=== PATIENT | female | born 1945 | race Caucasian/White ===

== ENCOUNTER 2025-03-26 16:26 | Emergency (ER) | payer OTHER, SELFPAY ==
[2025-03-26 16:28] VITALS: BP 165/85
[2025-03-26 17:07] LABS: ALT (SGPT) 32 U/L (0-35); AST (SGOT) 49 U/L (14-36); Albumin 4.1 g/dl (3.5-5.0); Alkaline Phosphatase 85 U/L (38-126); Blood Urea Nitrogen 23 mg/dl (7-17); Calcium 10.8 mg/dl (8.4-10.2); Carbon Dioxide 22 mmol/L (22-30); Chloride 104 mmol/L (98-107); Glucose 148 mg/dl (70-99); Potassium 4.2 mmol/L (3.5-5.1); Sodium 135 mmol/L (135-145); Total Protein 7.0 g/dl (6.3-8.2); eGFR 45.48
[2025-03-26 17:23] LABS: Hematocrit 44.5 % (37.0-47.0); Hemoglobin 15.0 g/dL (12.0-16.0); Mean Corp Hgb Conc. 33.7 g/dL (33.0-37.0); Mean Corpuscular Volume 91.8 fL (81.0-99.0); Nucleated Red Blood Cells % 0 %; Platelet Count 155 10^3/uL (130-400); Red Cell Dist. Width 13.2 % (11.5-14.5)
[2025-03-26 19:23] VITALS: BP 181/74
[2025-03-26 20:00] VITALS: BP 123/74
[2025-03-26] MEDS: NSS 1000 IV (20:16)
--- NOTE | 2025-03-26 20:17 | ED.GENMED ---
History of Present Illness
General
Chief Complaint: Abdominal Symptoms
Time Seen by Provider: 03/26/25 19:54
History of Present Illness
History of Present Illness:
79-year-old female presents to the emergency department for evaluation of dizziness and generalized weakness beginning. She states she has felt unwell for the past 5 days with chills and malaise, yesterday felt nauseated and threw up her breakfast.
Since that time has had positional dizziness. Denies any headaches, vision changes, chest pain, or shortness of breath. No coughing or abdominal pain at this point.
Past History
Past History
ED Past Medical History: Other (OA)
ED Past Surgical History: Cholecystectomy, and Orthopedic
Social History
Tobacco: Non-smoker
Personal:
Living: alone
Review of Systems
Review of Systems
Allergies reviewed?: Yes
All Other Systems: ROS reviewed and negative except as documented in HPI and ROS
Phy Exam
Physical Exam
Physical Exam:
GEN: Well appearing, NAD, WDWN
HEENT: Oral mucosa moist, no scleral icterus, no nasal congestion
Cardiac: Regular rate and rhythm, no murmur
Lung: No respiratory distress, no tachypnea, lungs clear to auscultation bilaterally
MSK: No gross deformity or injuries
Skin: Good color, no pallor or jaundice, no rashes
Neuro: AO x3; CN II-XII grossly intact. BUE strength 5/5 in all tsang, sensation intact and symmetric. BLE strength 5/5 in all tsang, sensation intact and symmetric
Psych: Calm, cooperative
Course
Orders/Labs/Results
Orders:
Orders
03/26/25 16:32
Electrocardiogram (*1) Urgent
Reason for Study: Chest Pain
EKG- Treatment ONCE
03/26/25 16:43
Complete Blood Count/With Diff Urgent
Comprehensive Metabolic Panel Urgent
03/26/25 20:08
0.9% Sodium Chloride 1000 ml [Nss] 1,000 ml IV BOLUS
03/26/25 22:24
Urinalysis Reflex To Culture Urgent
Date Specimen was Collected: 03/26/25
Time Specimen was Collected: 20:30
Urine Microscopic Reflex Cult Urgent
Urine Culture Urgent
TODD Source: U
Specimen Description:
Date Specimen was Collected: 03/26/25
Time Specimen was Collected: 20:30
03/26/25 23:09
Fosfomycin [Monurol] 3 gm PO ONCE ONE
Abnormal Lab Results
03/26/25 03/26/25
16:43 22:24
WBC 4.6 L 10^3/uL
(4.8-10.8)
Monocytes % 10.4 H %
(1.7-9.3)
BUN 23 H mg/dl
(7-17)
Creatinine 1.2 H mg/dL
(0.6-1.0)
Glucose 148 H mg/dl
(70-99)
Calcium 10.8 H mg/dl
(8.4-10.2)
AST 49 H U/L
(14-36)
Leukocyte Esterase Rfl 2+ A
(Negative)
Urine WBC (Reflex) 16-20 A /HPF
(0-5)
Urine Bacteria (Reflex) Moderate A
(Negative)
Urine Albumin (Reflex) 1+ A
(Neg - Trace)
03/26/25 16:43
03/26/25 16:43
Vital Signs
Initial and Last Documented VS:
Initial Vital Signs
Temp Pulse Resp BP Pulse Ox
98.3 F 96 16 165/85 95
03/26/25 16:28 03/26/25 16:28 03/26/25 16:28 03/26/25 16:28 03/26/25 16:28
Last Documented Vital Signs
Temp Pulse Resp BP Pulse Ox
98.3 F 82 28 164/87 67
03/26/25 16:28 03/26/25 22:15 03/26/25 22:15 03/26/25 23:24 03/26/25 23:23
MDM/Problems Addressed
MDM/Problems Addressed:
Patient was given IV fluids with resolution of dizziness. She was noted to have a mildly unsteady gait which the patient states is baseline for her and encouraged to use a cane or a walker at home. Urinalysis positive, given that she has chills we
will treat this as a UTI with fosfomycin
Comment
Comment:
EKG independently interpreted by me shows normal sinus rhythm at a rate of [address] changes concerning for ischemia
*Pulse Oximetry
SaO2: 95
Oxygen Mode of Delivery: Room air
Patient hypoxic: no
*Critical Care Note
Total Time (30-74mins, 75-104mins- exclusive of procedures): Not Applicable
ED Attending Note
-
Portions of this chart may have been created with voice recognition software.� Occasional wrong word or��sound alike� substitutions may have occurred due to the inherent limitations of voice recognition software.
Discharge Plan
Departure
Patient Disposition: Home (Routine Discharge)
Date of Disposition: 03/26/25
Time of Disposition: 23:10
Patient with high blood pressure during this ER visit?: No
Discharge Problem:
Acute UTI, Dizziness
Instructions: Urinary tract infection in adults - ED discharge instructions
Referrals:
Erica Puentes CRNP [Family Provider, General]
Activity Restrictions/Additional Instructions:
[facility]
[address]
[place] [address]
[phone]
Patient should see follow up provider for primary care within 7-14 days
Interventions
Interventions:
*Risk Screen - Suicide Last Done: 03/26/25 16:28
*General Assessment Last Done: 03/26/25 16:28
*Neglect/Abuse Screening Last Done: 03/26/25 16:28
*ED- Fall Risk Assessment Last Done: 03/26/25 23:30
*ED COVID-19 Vaccine History Last Done: 03/26/25 23:30
*Nursing Disposition Last Done: 03/26/25 23:30
CD-Hlrkcu-Qawywcdfes Assessment Last Done: 03/26/25 23:25
Discharge Date and Time
Discharge Date/Time: 03/26/25 23:25
Print Language: MALTESE
[2025-03-26 20:51] VITALS: BMI 26.7
[2025-03-26 21:38] VITALS: BP 133/81
[2025-03-26 22:00] VITALS: BP 132/63
[2025-03-26 22:32] LABS: Urine Character Clear (Clear)
[2025-03-26 22:39] LABS: Urine Red Blood Cell 0-2 /HPF (0-2); Urine Urothelial Cell 0-2 /LPF (FEW); Urine White Cell 16-20 /HPF (0-5)
[2025-03-26] MEDS: MONUROL 3 GM PO (23:19)
[2025-03-26 23:24] VITALS: BP 164/87
== END 2025-03-26 23:25 | disposition home or self-care (01) ==
LOC: EMR 16:26
PROVIDERS: Emergency Medicine; Physician Assistant; EMERGENCY PHYSICIAN Emergency Medicine; FAMILY PHYSICIAN Nurse Practitioner Adult Health
DX: N39.0 Urinary tract infection, site not specified (principal); R42 Dizziness and giddiness; Z90.49 Acquired absence of other specified parts of digestive tract
CPT/HCPCS: 99283; 96360; 80053; 81003; 81015; 85025; 87086; 93005

== ENCOUNTER → 2025-03-28 11:52 | Outpatient (REF) | payer OTHER, SELFPAY | LOC: HWRAD 11:52 | DX: M54.50 Low back pain, unspecified (principal) | CPT/HCPCS: 72110 ==

== ENCOUNTER → 2025-04-28 13:05 | Outpatient (REF) | payer OTHER, SELFPAY | LOC: HWRAD 13:05 | DX: R05.9 Cough, unspecified (principal) | CPT/HCPCS: 71046 ==

== ENCOUNTER → 2025-06-27 10:08 | Outpatient (REF) | payer OTHER, SELFPAY | LOC: HWRCS 10:08 | PROVIDERS: ATTENDING PHYSICIAN Internal Medicine Cardiovascular Disease | DX: R01.1 Cardiac murmur, unspecified (principal); I10 Essential (primary) hypertension | CPT/HCPCS: 93306 ==